=== PATIENT | female | born 1950 | race Asian ===

== ENCOUNTER 2024-03-20 19:57 | Emergency (ER) | payer BC ==
[~2024-03-20] VITALS: Ht 152.4 cm; Wt 53.1 kg
[2024-03-20] MEDS ORDERED: INSU100C SUBCUT (20:06)
[2024-03-20] MEDS ORDERED: ONDA4TAB11 PO (20:25)
[2024-03-20] MEDS ORDERED: HYDR-3980 PO ×2 (20:25→20:27)
[2024-03-20] MEDS ORDERED: CYCL10TA9 PO (20:25)
[2024-03-20] MEDS ORDERED: CYCLOBENZAPRINE HCL 10 MG TABLET ONE (20:26)
[2024-03-20] MEDS ORDERED: ONDANSETRON ODT 4 MG TAB.RAPDIS ONE (20:26)
[2024-03-20] MEDS ORDERED: HYDROMORPHONE 1 MG/1 ML DISP.SYRIN ONE (20:27)
[2024-03-20] MEDS: ONDANSETRON ODT 4 MG TAB.RAPDIS SL ONE (20:36)
[2024-03-20] MEDS: CYCLOBENZAPRINE HCL 10 MG TABLET PO ONE (20:36)
[2024-03-20] MEDS: HYDROMORPHONE 1 MG/1 ML DISP.SYRIN IM ONE (20:38)
[2024-03-20 21:14] VITALS: BP 137/82; TEMP 97.6; O2SAT 98
== END 2024-03-20 21:16 | disposition home or self-care (01) ==
LOC: ER 19:58
DX: M54.50 Low back pain, unspecified (principal); J45.909 Unspecified asthma, uncomplicated; E11.9 Type 2 diabetes mellitus without complications; Z79.4 Long term (current) use of insulin
CPT/HCPCS: 99283; 82962; 96372; J1171; A4606; A4663; Q0162

== ENCOUNTER 2025-01-03 13:44 | Inpatient (IN) | payer BC ==
[~2025-01-03] VITALS: Ht 152.4 cm; Wt 53.1 kg
[~2025-01-03 13:44] MED LIST: CYCL10TA9 PO; HYDR-3980 PO; INSU100C SUBCUT; ONDA4TAB11 PO
[2025-01-03] MEDS ORDERED: ADENOSINE 6 MG/2 ML SYR IV ONE (14:08)
[2025-01-03] MEDS: ADENOSINE 6 MG/2 ML SYR IV ONE (14:14)
[2025-01-03] MEDS: IV NORMAL SALINE 500 ML BAG IV ONE (14:31)
[2025-01-03 14:42] LABS: PLATELET COUNT (AUTO) 308 K/uL (179-408); RED BLOOD CELL COUNT(AUTO) 5.14 MIL/uL (3.63-4.92); RED CELL DISTRIBUTION WIDTH 14.0 % (12.3-17.7); WHITE BLOOD COUNT (AUTO) 10.4 K/uL (3.8-11.8)
[2025-01-03 14:56] LABS: CREATININE 0.9 mg/dL (0.6-1.3); SODIUM SERUM 136 mmol/L (136-145); UREA NITROGEN, BLOOD 15 mg/dL (7-18)
[2025-01-03] MEDS ORDERED: ACET-73 PO (15:13)
[2025-01-03] MEDS ORDERED: LOSA50TA39 PO (15:13)
[2025-01-03] MEDS ORDERED: LORA10TA7 PO (15:13)
[2025-01-03] MEDS ORDERED: INSU100I56 SQ ×2 (15:13→18:23)
[2025-01-03] MEDS ORDERED: LEVO50TA8 PO (15:13)
[2025-01-03] MEDS ORDERED: ASPIRIN 81 MG TAB.CHEW ONE (15:15)
[2025-01-03] MEDS ORDERED: METOPROLOL TARTRATE 50 MG TABLET ONE (15:15)
[2025-01-03] MEDS: ASPIRIN 81 MG TAB.CHEW PO ONE (15:21)
[2025-01-03] MEDS: METOPROLOL TARTRATE 50 MG TABLET PO ONE (15:21)
[2025-01-03] MEDS ORDERED: INSULIN REGULAR, HUMAN 1000 UNIT/10 ML VIAL SQ PRN (17:30)
[2025-01-03] MEDS ORDERED: ACETAMINOPHEN 325 MG TABLET PO PRN (17:30)
[2025-01-03] MEDS ORDERED: ONDANSETRON 4 MG/2 ML VIAL IV PRN (17:30)
[2025-01-03] MEDS ORDERED: DEXTROSE 50% 50 ML DISP.SYRIN IV PRN (17:30)
[2025-01-03] MEDS ORDERED: INSULIN REGULAR, HUMAN 300 UNITS/3 ML VIAL SQ PRN (17:30)
[2025-01-03] MEDS ORDERED: MORPHINE SULFATE 2 MG/1 ML DISP.SYRIN IVP PRN (17:30)
[2025-01-03] MEDS ORDERED: [UNRECOGNIZED DRUG - OTHER] IH (18:25)
[2025-01-03 18:26] VITALS: BP 120/61
[2025-01-03 19:06] VITALS: BP 136/70; TEMP 98.6; O2SAT 98
[2025-01-03 19:15] VITALS: BP 155/65; TEMP 98.2; O2SAT 98
[2025-01-03 19:30] VITALS: BP 155/65; TEMP 98.2; O2SAT 98
[2025-01-03] MEDS: BLOOD SUGAR DIAGNOSTIC 1 EACH STRIP VI SCH (22:15)
[2025-01-03] MEDS: INSULIN REGULAR, HUMAN 1000 UNIT/10 ML VIAL SQ PRN (22:17)
[2025-01-04] MEDS ORDERED: ALBUTEROL SULFATE 2.5 MG/3 ML NEBU NEB PRN (00:15)
[2025-01-04 04:50] VITALS: BP 146/71; TEMP 98.7; O2SAT 97
[2025-01-04] MEDS: LEVOTHYROXINE SODIUM 50 MCG TABLET PO SCH (06:29)
[2025-01-04 06:37] LABS: PLATELET COUNT (AUTO) 263 K/uL (179-408); RED BLOOD CELL COUNT(AUTO) 4.67 MIL/uL (3.63-4.92); RED CELL DISTRIBUTION WIDTH 13.8 % (12.3-17.7); WHITE BLOOD COUNT (AUTO) 8.4 K/uL (3.8-11.8)
[2025-01-04 07:00] LABS: ASPARTATE AMINOTRANSFERASE 14 U/L (15-37); CREATININE 0.5 mg/dL (0.6-1.3); SODIUM SERUM 141 mmol/L (136-145); TOTAL PROTEIN, SERUM 6.6 g/dL (6.4-8.2); UREA NITROGEN, BLOOD 12 mg/dL (7-18)
[2025-01-04 07:50] VITALS: BP 137/60; TEMP 98.2; O2SAT 99
[2025-01-04] MEDS ORDERED: LOSARTAN POTASSIUM 50 MG TABLET PO SCH (09:00)
[2025-01-04] MEDS ORDERED: ASPI81TA31 PO (09:25)
[2025-01-04] MEDS ORDERED: METO50TA16 PO (09:25)
[2025-01-04] MEDS: ASPIRIN 81 MG TAB.CHEW PO SCH (09:48)
[2025-01-04 09:50] VITALS: BP 159/62
[2025-01-04] MEDS: METOPROLOL TARTRATE 50 MG TABLET PO SCH (09:50)
[2025-01-04] MEDS: HEPARIN SODIUM,PORCINE 5,000 UNITS/ML VIAL SQ SCH (09:56)
== END 2025-01-04 12:14 | disposition home or self-care (01) | DRG 201 ==
LOC: ER 13:44 → TELE3 18:34
PROVIDERS: ADMIT Internal Medicine; ATTEND Internal Medicine
DX: I47.10 Supraventricular tachycardia, unspecified (principal); I21.A1 Myocardial infarction type 2; E11.65 Type 2 diabetes mellitus with hyperglycemia; Z79.4 Long term (current) use of insulin; E03.9 Hypothyroidism, unspecified; I10 Essential (primary) hypertension; J45.909 Unspecified asthma, uncomplicated; Z79.890 Hormone replacement therapy; Z79.899 Other long term (current) drug therapy; I25.10 Atherosclerotic heart disease of native coronary artery without angina pectoris
CPT/HCPCS: 36415; 71045; 83735; 84100; 84443; 84481; 84484; 85025; A4606; A4663; G0378; J0153; J1644; J7040